=== PATIENT | female | born 1980 | race Two or more races ===

== ENCOUNTER 2024-07-03 09:15 | Emergency (ER) | payer MEDICAID, SELFPAY ==
[2024-07-03 09:22] VITALS: PULSE 93; RESP 18; BMI 30.5
[2024-07-03 09:42] VITALS: BMI 29.8
[2024-07-03 09:44] VITALS: BP 135/88; PULSE 77; RESP 20; TEMP 36.6; O2SAT 96
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
[2024-07-03 11:52] VITALS: BP 139/87; PULSE 73; RESP 18; TEMP 36.7; O2SAT 98
== END 2024-07-03 11:54 | disposition home or self-care (01) ==
PROVIDERS: Emergency Provider Emergency Medicine; PCP Nurse Practitioner Family
DX: S60.212A Contusion of left wrist, initial encounter (principal); S10.93XA Contusion of unspecified part of neck, initial encounter; S80.02XA Contusion of left knee, initial encounter; S80.01XA Contusion of right knee, initial encounter; V89.2XXA Person injured in unspecified motor-vehicle accident, traffic, initial encounter
CPT/HCPCS: 72040; 73110; 73562; 99283

== ENCOUNTER → 2025-05-24 | Outpatient (CLI) | payer MEDICAID, SELFPAY ==
--- NOTE | 2025-05-24 15:30 | XR_ITS ---
Examination: Screening digital mammography, bilateral Computer aided detection 3-D breast Tomosynthesis, bilateral Date and time of exam: May 24, 2025, 1437 hours Indication: Screening Technique: Nonmagnified MLO, CC views of the breasts to been obtained, reconstructed from 3-D Tomosynthesis images. R2 computer aided detection program utilized for evaluation of suspicious masses and/or abnormal calcifications. 3-D Tomosynthesis images obtained. Findings: The breasts are heterogeneously dense, which may obscure small masses 4 mm nodule with calcifications partially circumscribed upper outer left breast anterior depth Impression: BI-RADS Category 0: Incomplete: Need additional imaging evaluation Recommend follow-up spot tomographic views for millimeter nodule with calcifications upper outer left breast as well as bilateral breast sonography to complete the
== END | disposition home or self-care (01) ==
PROVIDERS: Referring Provider Family Medicine; Visit Provider Family Medicine
DX: Z12.31 Encounter for screening mammogram for malignant neoplasm of breast (principal); R92.8 Other abnormal and inconclusive findings on diagnostic imaging of breast; N63.21 Unspecified lump in the left breast, upper outer quadrant
CPT/HCPCS: 77063; 77067

== ENCOUNTER → 2025-07-04 | Outpatient (CLI) | payer MEDICAID, SELFPAY ==
--- NOTE | 2025-07-04 13:00 | XR_ITS ---
Examination: Breast ultrasound complete, bilateral Date and time of exam: July 04, 2025, 1313 hours INDICATIONS: Mammogram May 24, 2025, 4 mm nodule circumscribed upper outer left breast Technique: Real-time grayscale ultrasonographic imaging bilateral breasts, including all 4 quadrants as well as nipple retroareolar and axillary regions. Findings: Sonographic images right breast Multiple benign cysts, the largest 12 o'clock position 6 x 3 mm No solid nodules Sonographic images left breast 3:00 nodule lobular margins 5 x 6 mm 5:00 cyst 4 x 4 mm 6:00 nodule lobular margins 11 x 11 mm 6:00 cyst 6 x 6 mm 10:00 cyst 2 x 2 mm IMPRESSION: BI-RADS Category 3: Probably benign findings 1 additional 6-month left breast sonogram follow-up as needed to document stability of solid nodules described above
--- NOTE | 2025-07-04 14:15 | XR_ITS ---
Examination: Diagnostic digital mammography, unilateral, left Computer aided detection 3-D breast Tomosynthesis, unilateral Date and time of exam: 07/04/2025, Comparisons: 05/24/2025 Indications: Further evaluation of a partially calcified 4 mm nodule. Technique: Nonmagnified MLO, CC views of the left breast have been obtained, reconstructed from 3-D Tomosynthesis images. R2 computer aided detection program utilized for evaluation of suspicious masses and/or abnormal calcifications. 3-D Tomosynthesis images obtained. Technologist: Findings: The breasts are heterogeneously dense, which may obscure small masses. Benign-appearing 4 mm partially calcified circumscribed mass. Otherwise, no evidence of abnormal masses or suspicious calcifications. Impression: Benign-appearing partially calcified 4 mm oval circumscribed mass likely represents a fibroadenoma BI-RADS category 2: Benign findings Recommend 1 year follow-up mammogram
== END | disposition home or self-care (01) ==
LOC: CDIM 12:43
PROVIDERS: Referring Provider Family Medicine; Visit Provider Family Medicine
DX: R92.322 Mammographic fibroglandular density, left breast (principal); R92.1 Mammographic calcification found on diagnostic imaging of breast; N63.25 Unspecified lump in the left breast, overlapping quadrants
CPT/HCPCS: 76641; 77061; 77065; G0279